=== PATIENT | female | born 1995 | race Caucasian/White ===

== ENCOUNTER 2017-02-11 08:43 | Emergency (ER) | payer OTHER ==
[~2017-02-11] VITALS: Ht 149.9 cm; Wt 52.2 kg
[2017-02-11 08:50] VITALS: BP 116/92
--- NOTE | 2017-02-11 08:56 | NUR ---
PT PRESENTS TO ER W/C/O VAGINAL BLEEDING X3 WEEKS. S/P 11/19/16. HX HYPOTHYROIDISM AN ANEMIA . PT STATES SHE FEELS LIGHT HEADED AT HOME . DENIES N/V/D; SKIN IS PINK/WARM/DRY; AAOX4 WITH EVEN AND STEADY GAIT; LUNGS CLEAR BL; HR EVEN AND REGULAR; PT DENIES ANY FEVER, CP, SOB, OR COUGH AT THIS TIME; PATIENT STATES PAIN OF 0/10 AT THIS TIME;PATIENT POSITIONED FOR COMFORT; HOB ELEVATED; BEDRAILS UP X2; BED DOWN. ALL MONITORS IN PLACED.
--- NOTE | 2017-02-11 08:59 | NUR ---
ERMD AT BEDSIDE.
[2017-02-11] MEDS ORDERED: NACL 0.9% 1,000 ML IV ONE (09:05)
[2017-02-11] MEDS ORDERED: HYDROmorphone 1 MG/ML AMP IVP ONE (09:05)
[2017-02-11] MEDS ORDERED: ONDANSETRON 4 MG/2 ML VIAL IVP ONE (09:05)
[2017-02-11 09:37] LABS: BASOPHILS # (AUTO) 0.1 K/uL (0.00-0.22); BASOPHILS % (AUTO) 1.6 % (0.0-2.0); EOSINOPHILS # (AUTO) 0.5 K/uL (0-0.4); EOSINOPHILS % (AUTO) 6.2 % (0.0-4.0); HEMATOCRIT 43.2 % (36-48); LYMPHOCYTES # (AUTO) 1.8 K/uL (2.5-16.5); LYMPHOCYTES % (AUTO) 22.5 % (20.5-51.1); MEAN CORPUSCULAR HEMOGLOBIN 27 pg (27-31); MEAN CORPUSCULAR HGB CONC 32 g/dL (33-37); MEAN CORPUSCULAR VOLUME 83 fL (80-94); MONOCYTES # (AUTO) 0.4 K/uL (0.8-1.0); MONOCYTES % (AUTO) 5.4 % (1.7-9.3); NEUTROPHILS % (AUTO) 64.3 % (42.2-75.2); PLATELET COUNT (AUTO) 240 K/uL (140-450); RED CELL DISTRIBUTION WIDTH 14.1 % (11.6-13.7); WHITE BLOOD COUNT (AUTO) 7.8 K/uL (4.8-10.8)
--- NOTE | 2017-02-11 09:41 | NUR ---
US AT BESIDE FOR EXAM.
--- NOTE | 2017-02-11 10:00 | NUR ---
PT SLEEPING;NO ACUTE DISTRESS NOTED;ALL MONITORS IN PLACED.
--- NOTE | 2017-02-11 11:29 | NUR ---
PT CHANGE HER PADS AND UNDERGARMENT;PT HAS VAGINL BLEEDING;NO ACUTE DISTESS NOTED;WILL CONTINUE TO MONITOR PT.
--- NOTE | 2017-02-11 11:50 | NUR ---
PELVIC EXAM DONE;PT TOLERATED WELL PROCEDURE.
--- NOTE | 2017-02-11 13:00 | NUR ---
PT RESTING ON BED;NO ACUTE DISTRESS NOTED;WILL CONTINUE TO MONITOR PT.
--- NOTE | 2017-02-11 13:29 | NUR ---
Patient discharged with v/s stable. Written and verbal after care instructions given and explained.Patient alert, oriented and verbalized understanding of instructions. Ambulatory with steady gait. All questions addressed prior to discharge. ID band removed. Patient advised to follow up with PMD. Rx of NORCO AND ZOFRAN given. Patient educated on indication of medication including possible reaction and side effects. Opportunity to ask questions provided and answered.
[2017-02-11 13:30] VITALS: BP 109/76
[2017-02-13 06:28] LABS: CHLAMYDIA TRACHOMATIS AMP DNA Negative (Negative)
== END 2017-02-11 13:29 | disposition home or self-care (01) ==
LOC: MED 08:43
DX: N93.8 Other specified abnormal uterine and vaginal bleeding (principal)
CPT/HCPCS: 36415; 76830; 76856; 81002; 81025; 85025; 87070; 87205; 87210; 87491; 93005; 96361; 96374; 96375; 99285; J1170; J2405; J7030; Q0092

== ENCOUNTER 2023-12-07 14:21 | Emergency (ER) | payer OTHER ==
[~2023-12-07] VITALS: Ht 147.3 cm; Wt 59.9 kg
[2023-12-07 15:00] VITALS: BP 129/85; PULSE 83; RESP 15; TEMP 98.2; O2SAT 100
[2023-12-07] MEDS ORDERED: ONDA8TAB87 PO (15:53)
[2023-12-07] MEDS ORDERED: MEDR10TA PO (15:53)
[2023-12-07] MEDS ORDERED: IBUP-2213 PO (15:53)
[2023-12-07 16:12] VITALS: TEMP 98.5
[2023-12-07 16:19] VITALS: BP 124/93; PULSE 63; O2SAT 97
== END 2023-12-07 16:19 | disposition home or self-care (01) ==
LOC: MED 14:21
DX: N93.8 Other specified abnormal uterine and vaginal bleeding (principal); R11.0 Nausea; Z79.899 Other long term (current) drug therapy
CPT/HCPCS: 81002; 81025; 99283